=== PATIENT | female | born 1990 | race American Indian/Alaskan Native ===

== ENCOUNTER 2022-07-04 00:02 | Emergency (ER) | payer MEDICAID, OTHER, SELFPAY ==
[2022-07-04 00:33] VITALS: BP 138/86; PULSE 130; RESP 18; TEMP 37; O2SAT 96
--- NOTE | 2022-07-04 00:42 | DI.RAD.S_ITS ---
PROCEDURE: XR CHEST 2V INDICATIONS: cough,congestion TECHNIQUE: 2 views of the chest were acquired. COMPARISON: [facility], CR, XR CHEST 1 VIEW, 04/28/2022, 20:40. FINDINGS: Surgical changes and devices: None. Lungs and pleura: There are increased medial right infrahilar opacities. No pleural effusions or pneumothorax. Mediastinum: Mediastinal contours are normal. Heart size is normal. Bones and chest wall: No suspicious bony abnormalities. Soft tissues appear unremarkable. IMPRESSION: 1. Increased medial right infrahilar opacities suggestive of consolidation and pneumonia. Dictated by: Toni Serrano M.D. on 07/04/2022 at 1:57 Approved by: Toni Serrano M.D. on 07/04/2022 at 1:58
[2022-07-04 01:38] LABS: Adenovirus Not Detected (Not Detect); B. parapertussis Not Detected (Not Detecte); Bordetella pertussis Not Detected (Not Detecte); Chlamydophila pneumoniae Not Detected (Not Detect); Coronavirus 229E Not Detected (Not Detect); Coronavirus HKU1 Not Detected (Not Detect); Coronavirus NL 63 Not Detected (Not Detect); Coronavirus OC43 Not Detected (Not Detect); Human Metapneumovirus Not Detected (Not Detect); Human Rhinovirus/Enterovirus Detected (Not Detect); Influenza A Not Detected (Not Detect); Influenza B Not Detected (Not Detect); Mycoplasma pneumoniae Not Detected (Not Detect); Parainfluenza Virus 1 Not Detected (Not Detect); Parainfluenza Virus 2 Not Detected (Not Detect); Parainfluenza Virus 3 Not Detected (Not Detect); Parainfluenza Virus 4 Not Detected (Not Detect); Respiratory Syncytial Virus Not Detected (Not Detect); SARS- CoV-2 Not Detected (Not Detecte)
[2022-07-04 04:49] VITALS: BP 126/68; PULSE 92; RESP 17; O2SAT 97
--- NOTE | 2022-07-04 05:49 | ED_ITS ---
HPI - URI/Sore Throat General Chief Complaint: Upper Respiratory Symptoms Stated Complaint: CONGESTED Time Seen by Provider: 07/04/22 05:39 Source: patient Mode of arrival: Wheelchair History of Present Illness HPI Narrative: Patient is a 32-year-old female without past medical history presenting today with cough congestion generally not feeling well. She is overall an extremely poor historian difficult to get information out of. She has been in the emergency department now for 6 hours. She initially was tachycardic. She now has been sleeping for multiple hours she awakes easily. She denies fever she is mildly chilled. He says she is very congested coughing up mucus Related Data Home Medications Medication Instructions Recorded Confirmed acetaminophen 500 mg tablet 1,500 mg PO Q6HP ##0 01/12/13 (Tylenol Extra Strength) ibuprofen 400 mg tablet 1,600 mg PO Q6HP ##0 01/12/13 VIT#96/FERROUS FUM/FA ##0 03/31/13 ( Vitamin) [BUSPAR] ##0 03/31/13 [CELEXA] ##0 03/31/13 Previous Rx's Medication Instructions Recorded hydrocodone 5 mg-acetaminophen 325 0 tab PO Q6H PRN ##20 01/15/13 mg tablet amoxicillin 500 mg capsule 1,000 mg PO TID 5 days #30 caps 07/04/22 doxycycline hyclate 100 mg capsule 100 mg PO BID #10 caps 07/04/22 Allergies Allergy/AdvReac Type Severity Reaction Status Date / Time Codeine Allergy Unknown Uncoded 12/11/17 13:05 Propoxyphene Allergy Unknown ITCHY/RASH Uncoded 12/11/17 13:05 Tramadol Allergy Unknown LIPS Uncoded 12/11/17 13:05 SWOLLEN Review of Systems Review of Systems Narrative: GENERAL: Denies chills, fatigue, malaise, fever, sweats, travel HEENT: Denies sinus pain, ear pain, sore throat, difficulty swallowing, neck pain RESPIRATORY: See HPI CARDIOVASCULAR: Denies chest pain, palpitations, orthopnea, edema GASTROINTESTINAL: Denies nausea, vomiting, abdominal pain, diarrhea, constipation, melena. : Denies dysuria, frequency, incontinence, hematuria, urinary retention, flank pain. MUSCULOSKELETAL: Denies weakness, joint pain, or bony pain SKIN: No rash, no erythema, no pruritus NEUROLOGIC: Denies weakness, dizziness, headache, numbness, change in speech, confusion PSYCHIATRIC: No concerning psychosocial issues. 12 point review of systems is negative except for those stated above and HPI Patient History Social History Smoking Status: Current every day smoker Smoking Status: Current every day smoker Substance Use Type: marijuana Exam Initial Vital Signs Initial Vital Signs: Vital Signs Temperature 98.6 F 07/04/22 00:33 Pulse Rate 130 H 07/04/22 00:33 Respiratory Rate 18 07/04/22 00:33 Blood Pressure 138/86 07/04/22 00:33 Pulse Oximetry 96 07/04/22 00:33 Oxygen Delivery Method 07/04/22 00:33 GENERAL: Sleeping arousable 32-year-old HEENT: Head atraumatic,EOMI, pupils reactive, face symmetric, moist mucous membranes CARDIOVASCULAR: Regular rate and rhythm without murmurs, rubs or gallops. RESPIRATORY: Mild crackles right side no respiratory distress speaks in full sentences ABDOMEN: Soft, nontender. Normoactive bowel sounds all 4 quadrants. No guarding or rebound. EXTREMITIES: Normal range of motion, no clubbing or edema. Neurovascularly intact NEUROLOGICAL: Alert and oriented x4.Normal gait and speech. SKIN: Warm, dry, no laceration, no petechiae, no rashes or lesions. Course Orders Ordered: Discontinued Medications Sodium Chloride (Normal Saline 0.9%) 1,000 mls @ 1,000 mls/hr IV BOLUS ONE Stop: 07/04/22 06:52 Last Infusion: 07/04/22 07:08 Dose: 0 mls/hr Documented By: MLTracey Admin: 07/04/22 06:02 Dose: 1,000 mls/hr Documented By: TERENCE Ibuprofen (Ibuprofen 400 Mg Tablet) 800 mg PO NOW ONE Stop: 07/04/22 05:52 Last Admin: 07/04/22 06:02 Dose: 800 mg Documented By: AP Vital Signs Vital signs: Vital Signs - 8 hr 07/04/22 00:33 07/04/22 04:49 07/04/22 06:06 Temperature 98.6 F Pulse Rate 130 H 92 H 97 H Respiratory Rate 18 17 14 Blood Pressure 138/86 126/68 126/68 Pulse Oximetry 96 97 97 Oxygen Delivery Method Room Air Room Air Room Air [facility] - URI/Sore Throat Lab Data Result diagrams: 07/04/22 06:03 07/04/22 06:03 Labs: Lab Results 07/04/22 07/04/22 07/04/22 Range/Units 00:35 06:03 06:03 WBC 12.3 H (4.5-11.0) X10^3/uL RBC 4.40 (4.0-5.2) X10^6/uL Hgb 11.6 L (12.0-16.0) g/dL Hct 34.4 L (36-46) % MCV 78.1 L (80-100) fL MCH 26.4 (26-34) PG MCHC 33.8 (30-36) % RDW 14.1 (11.6-14.8) % Plt Count 237 (150-400) X10^3/uL Neut % (Auto) 81.9 H (50-75) % Lymph % (Auto) 10.0 L (25-40) % [place] % (Auto) 6.3 (3-14) % Eos % (Auto) 1.5 L (2-4) % Baso % (Auto) 0.3 (0-2) % Neut # (Auto) 56718 H (1364-6636) /uL Lymph # (Auto) 1200 (8211-4434) /uL [place] # (Auto) 800 (0-900) /uL Eos # (Auto) 200 (0-450) /uL Baso # (Auto) 0 (0-100) /uL Sodium 138 (137-145) mmol/L Potassium 4.1 (3.4-5.1) mmol/L Chloride 101 (98-107) mmol/L Carbon Dioxide 29 (22-32) mmol/L BUN 15 (7-17) mg/dL Creatinine 0.67 (0.52-1.04) mg/dL Estimated GFR > 60 (>60) mL/min BUN/Creatinine Ratio 22.4 H (6-22) Glucose 94 (70-100) mg/dL Lactate (0.7-2.1) mmol/L Calcium 8.3 L (8.4-10.2) mg/dL Total Bilirubin 0.3 (0.2-1.3) mg/dL AST 20 (14-36) IU/L ALT 18 (<35) IU/L Alkaline Phosphatase 85 (38-126) U/L Total Protein 7.2 (6.3-8.2) g/dL Albumin 3.8 (3.5-5.0) g/dL Globulin 3.4 (1.7-4.1) g/dL Albumin/Globulin Ratio 1.1 (1.0-2.8) Procalcitonin 0.30 (<0.5) ng/mL Chlamy pneumoniae PCR Not detected (Not Detect) Adenovirus (PCR) Not detected (Not Detect) B. pertussis DNA (PCR) Not detected (Not Detecte) B.parapertussis DNA PCR Not detected (Not Detecte) Coronavirus OC43 (PCR) Not detected (Not Detect) Coronavirus HKU1 (PCR) Not detected (Not Detect) Coronavirus 229E (PCR) Not detected (Not Detect) SARS-CoV-2 (PCR) Not detected (Not Detecte) Coronavirus NL63 (PCR) Not detected (Not Detect) Human Metapneumovir PCR Not detected (Not Detect) Influenza Type A (PCR) Not detected (Not Detect) Influenza Type B (PCR) Not detected (Not Detect) M. pneumoniae (PCR) Not detected (Not Detect) Parainfluenza 1 (PCR) Not detected (Not Detect) Parainfluenza 2 (PCR) Not detected (Not Detect) Parainfluenza 3 (PCR) Not detected (Not Detect) Parainfluenza 4 (PCR) Not detected (Not Detect) RSV (PCR) Not detected (Not Detect) Entero/Rhino (PCR) Detected H (Not Detect) 07/04/22 Range/Units 06:03 WBC (4.5-11.0) X10^3/uL RBC (4.0-5.2) X10^6/uL Hgb (12.0-16.0) g/dL Hct (36-46) % MCV (80-100) fL MCH (26-34) PG MCHC (30-36) % RDW (11.6-14.8) % Plt Count (150-400) X10^3/uL Neut % (Auto) (50-75) % Lymph % (Auto) (25-40) % [place] % (Auto) (3-14) % Eos % (Auto) (2-4) % Baso % (Auto) (0-2) % Neut # (Auto) (7684-8749) /uL Lymph # (Auto) (4739-9162) /uL [place] # (Auto) (0-900) /uL Eos # (Auto) (0-450) /uL Baso # (Auto) (0-100) /uL Sodium (137-145) mmol/L Potassium (3.4-5.1) mmol/L Chloride (98-107) mmol/L Carbon Dioxide (22-32) mmol/L BUN (7-17) mg/dL Creatinine (0.52-1.04) mg/dL Estimated GFR (>60) mL/min BUN/Creatinine Ratio (6-22) Glucose (70-100) mg/dL Lactate 0.7 (0.7-2.1) mmol/L Calcium (8.4-10.2) mg/dL Total Bilirubin (0.2-1.3) mg/dL AST (14-36) IU/L ALT (<35) IU/L Alkaline Phosphatase (38-126) U/L Total Protein (6.3-8.2) g/dL Albumin (3.5-5.0) g/dL Globulin (1.7-4.1) g/dL Albumin/Globulin Ratio (1.0-2.8) Procalcitonin (<0.5) ng/mL Chlamy pneumoniae PCR (Not Detect) Adenovirus (PCR) (Not Detect) B. pertussis DNA (PCR) (Not Detecte) B.parapertussis DNA PCR (Not Detecte) Coronavirus OC43 (PCR) (Not Detect) Coronavirus HKU1 (PCR) (Not Detect) Coronavirus 229E (PCR) (Not Detect) SARS-CoV-2 (PCR) (Not Detecte) Coronavirus NL63 (PCR) (Not Detect) Human Metapneumovir PCR (Not Detect) Influenza Type A (PCR) (Not Detect) Influenza Type B (PCR) (Not Detect) M. pneumoniae (PCR) (Not Detect) Parainfluenza 1 (PCR) (Not Detect) Parainfluenza 2 (PCR) (Not Detect) Parainfluenza 3 (PCR) (Not Detect) Parainfluenza 4 (PCR) (Not Detect) RSV (PCR) (Not Detect) Entero/Rhino (PCR) (Not Detect) Imaging Data Chest x-ray: Radiologist's Impression: XRay Report Signed Patient: Geovanny Bush MR#: [id number] : 1990 Acct:[id number] Age/Sex: 32 / F Date of Service: 07/04/22 Loc: ED Accession Number: [id number] ?? Procedure: XR chest 2V Ordering Provider: Sultana Sullivan D.O. PROCEDURE:? XR CHEST 2V ? INDICATIONS:? cough,congestion ? TECHNIQUE:? 2 views of the chest were acquired.? ? COMPARISON:? [facility], CR, XR CHEST 1 VIEW, 04/28/2022, 20:40. ? FINDINGS:? ? Surgical changes and devices:? None.? ? Lungs and pleura:? There are increased medial right infrahilar opacities.? No pleural effusions or pneumothorax.? ? Mediastinum:? Mediastinal contours are normal.? Heart size is normal.? ? Bones and chest wall:? No suspicious bony abnormalities.? Soft tissues appear unremarkable.? ? IMPRESSION:? ? 1. Increased medial right infrahilar opacities suggestive of consolidation and pneumonia. ? ? Dictated by: Toni Serrano M.D. on 07/04/2022 at 1:57 ? ? Approved by: Toni Serrano M.D. on 07/04/2022 at 1:58 ? MDM Narrative Medical decision making narrative: Patient initially tachycardic with heart rate of 130s over sleeping in the lobby for new or so hours. His she is still intermittently tachycardic when she wakes up and starts talking heart rate goes into the 120s. She is found have pneumonia on her x-ray and not respiratory panel is positive for RSV. She is very difficult to get information out of. Fluids are given heart rate improves. Will treat her with amoxicillin and doxycycline for pneumonia shot. She is not septic. Procalcitonin lactic acid and leukocytosis are within normal limits. At this time no need for any further workup. Discharge Plan Departure Patient Disposition: Home Clinical Impression: Respiratory syncytial virus (RSV), Pneumonia Activity Restrictions/Additional Instructions: *You have been diagnosed with pneumonia an RSV *What to do: Drink fluids. Take medication for fever *Continue to take medications as directed Motrin 800 mg every 8 hours if needed for fever Amoxicillin 1000 mg 3 times a day for 5 days Doxycycline 100 mg twice a day for 5 days *Follow up with your primary care provider in 2-3 days or call [phone] *Return to ER if you should have seeing shortness of breath, confusion chest or any new, worsening or concerning symptoms Prescriptions: New amoxicillin 500 mg capsule 1,000 mg PO TID 5 Days Qty: 30 0RF doxycycline hyclate 100 mg capsule 100 mg PO BID Qty: 10 0RF No Action acetaminophen [Tylenol Extra Strength] 500 MG tablet 1,500 mg PO Q6HP Qty: 0 ibuprofen 400 MG tablet 1,600 mg PO Q6HP Qty: 0 hydrocodone-acetaminophen 5 MG/325 MG tablet 0 tab PO Q6H PRN Qty: 20 0RF VIT#96/FERROUS FUM/FA ( Vitamin) Qty: 0 [BUSPAR] Qty: 0 [CELEXA] Qty: 0 Referrals: Jonathan Llanos MD [Primary Care Provider] - Visit Report Forms: Patient Portal/API
[2022-07-04] MEDS: IBUPROFEN 400 MG TABLET 800 MG PO (06:02)
[2022-07-04] MEDS: SODIUM CHLORIDE 0.9% 1,000 ML 1000 ML IV (06:02)
[2022-07-04 06:06] VITALS: BP 126/68; PULSE 97; RESP 14; O2SAT 97
[2022-07-04 06:25] LABS: Add Manual Diff / Slide Review NO; Basophils Absolute Auto 0 /uL (0-100); Basophils Percent Auto 0.3 % (0-2); Eosinophils Absolute Auto 200 /uL (0-450); Eosinophils Percent Auto 1.5 % (2-4); Hematocrit 34.4 % (36-46); Hemoglobin 11.6 g/dL (12.0-16.0); Lymphocytes Absolute Auto 1200 /uL (1100-4500); Mean Corpuscular HGB Conc 33.8 % (30-36); Mean Corpuscular Hemoglobin 26.4 PG (26-34); Mean Corpuscular Volume 78.1 fL (80-100); Monocytes Absolute Auto 800 /uL (0-900); Monocytes Percent Auto 6.3 % (3-14); Neutrophils Absolute Auto 10100 /uL (1500-7000); Neutrophils Percent Auto 81.9 % (50-75); Platelet Count 237 X10^3/uL (150-400); Red Cell Distribution Width 14.1 % (11.6-14.8); White Blood Cell Count 12.3 X10^3/uL (4.5-11.0)
[2022-07-04 06:33] LABS: Alanine Aminotransferase 18 IU/L (<35); Albumin 3.8 g/dL (3.5-5.0); Albumin Globulin Ratio 1.1 (1.0-2.8); Alkaline Phosphatase 85 U/L (38-126); Aspartate Aminotransferase 20 IU/L (14-36); BUN Creatinine Ratio 22.4 (6-22); Bilirubin Total 0.3 mg/dL (0.2-1.3); Blood Urea Nitrogen 15 mg/dL (7-17); Calcium 8.3 mg/dL (8.4-10.2); Carbon Dioxide 29 mmol/L (22-32); Chloride 101 mmol/L (98-107); Estimated Glomerular Filt Rate > 60 mL/min (>60); Globulin 3.4 g/dL (1.7-4.1); Glucose 94 mg/dL (70-100); HEMOLYSIS < 15 (0-50); Lactate (Lactic Acid) 0.7 mmol/L (0.7-2.1); Potassium 4.1 mmol/L (3.4-5.1); Sodium 138 mmol/L (137-145); Total Protein 7.2 g/dL (6.3-8.2)
[2022-07-04 07:07] VITALS: BP 126/68; PULSE 67; RESP 18; O2SAT 98
[2022-07-04 07:15] VITALS: BP 125/70; PULSE 102; RESP 16; O2SAT 98
== END 2022-07-04 07:19 | disposition home or self-care (01) ==
PROVIDERS: Emergency Provider Emergency Medicine; PCP Family Medicine
DX: J12.1 Respiratory syncytial virus pneumonia (principal); R00.0 Tachycardia, unspecified; Z20.822 Contact with and (suspected) exposure to COVID-19
CPT/HCPCS: 36415; 71046; 80053; 83605; 84145; 85025; 87040; 87633; 96360; 99284

== ENCOUNTER 2022-07-30 20:15 | Emergency (ER) | payer MEDICAID, OTHER, SELFPAY ==
[2022-07-30 20:40] VITALS: BP 143/88; PULSE 120; RESP 18; TEMP 38.3; O2SAT 97
--- NOTE | 2022-07-30 20:50 | DI.RAD.S_ITS ---
PROCEDURE: XR CHEST 1V INDICATIONS: suspected sepsis TECHNIQUE: One view of the chest was acquired. COMPARISON: [facility], CR, XR CHEST 2V, 07/04/2022, 0:47. FINDINGS: Surgical changes and devices: None. Lungs and pleura: Lungs are clear. No pleural effusions or pneumothorax. Mediastinum: Mediastinal contours appear normal. Heart size is normal. Bones and chest wall: No suspicious bony lesions. Overlying soft tissues appear unremarkable. IMPRESSION: 1. No acute cardiopulmonary disease. Dictated by: Toni Serrano M.D. on 07/30/2022 at 21:22 Approved by: Toni Serrano M.D. on 07/30/2022 at 21:23
--- NOTE | 2022-07-30 21:18 | ED.HA ---
HPI - Headache General Chief Complaint: Headache Stated Complaint: Headache, Illness, Nausea Time Seen by Provider: 07/30/22 21:01 Mode of arrival: Ambulatory History of Present Illness HPI Narrative: 32-year-old female smoker presents with other family members and similar complaints including 24 hours of body aches, subjective fever, mild headache, sore throat and a dry hacking cough. She is had nausea but denies any vomiting, abdominal pain or diarrhea. She is been exposed to other persons with similar symptoms. Related Data Home Medications Medication Instructions Recorded Confirmed acetaminophen 500 mg tablet 1,500 mg PO Q6HP ##0 01/12/13 (Tylenol Extra Strength) ibuprofen 400 mg tablet 1,600 mg PO Q6HP ##0 01/12/13 VIT#96/FERROUS FUM/FA ##0 03/31/13 ( Vitamin) [BUSPAR] ##0 03/31/13 [CELEXA] ##0 03/31/13 Previous Rx's Medication Instructions Recorded hydrocodone 5 mg-acetaminophen 325 0 tab PO Q6H PRN ##20 01/15/13 mg tablet doxycycline hyclate 100 mg capsule 100 mg PO BID #10 caps 07/04/22 oseltamivir 75 mg capsule (Tamiflu) 75 mg PO BID 5 days #10 caps 07/30/22 Allergies Allergy/AdvReac Type Severity Reaction Status Date / Time codeine Allergy Unknown Verified 07/30/22 20:52 propoxyphene Allergy Unknown Verified 07/30/22 20:52 tramadol Allergy Unknown Verified 07/30/22 20:52 Review of Systems Review of Systems Narrative: GENERAL: See HPI HEENT: See HPI RESPIRATORY: See HPI CARDIOVASCULAR: Denies chest pain, palpitations, orthopnea, edema, GASTROINTESTINAL: Denies nausea, vomiting, abdominal pain, diarrhea, constipation, melena. : Denies dysuria, frequency, incontinence, hematuria, urinary retention. MUSCULOSKELETAL: denies weakness, joint pain, or bony pain SKIN: Denies rash, skin lesions, or other NEUROLOGIC: Denies weakness, headache, numbness, change in speech, confusion, seizures, incoordination. PSYCHIATRIC: No concerning psychosocial issues. 12 point review of systems is negative except for those stated above Patient History Social History Smoking Status: Current every day smoker Smoking Status: Current every day smoker Substance Use Type: marijuana Exam Narrative Exam Narrative: GENERAL: [32] year old patient appears stated age. Well-developed patient, in mild distress. HEAD: Atraumatic. Normocephalic. EYES: Pupils equal round and reactive. Extraocular motions intact. No scleral icterus. No injection or drainage. ENT: Nose without bleeding, purulent drainage. Throat without erythema, tonsillar hypertrophy or exudate. Airway patent. NECK: Trachea midline. Non tender CARDIOVASCULAR: Tachycardic but regular and rhythm without murmurs, gallops, or rubs. RESPIRATORY: Clear to auscultation. Breath sounds equal bilaterally. No wheezes, rales, or rhonchi. No evidence of respiratory distress such as use of accessory muscles or hypoxemia GASTROINTESTINAL: Abdomen soft, non-tender, nondistended. EXTREMITIES: No edema or joint tenderness. BACK: Nontender without deformity or crepitance. No flank tenderness. NEURO: AOx3. SKIN: No rash or erythema of visible areas Initial Vital Signs Initial Vital Signs: Vital Signs Temperature 101 F H 07/30/22 20:40 Pulse Rate 120 H 07/30/22 20:40 Respiratory Rate 18 07/30/22 20:40 Blood Pressure 143/88 H 07/30/22 20:40 Pulse Oximetry 97 07/30/22 20:40 Oxygen Delivery Method 07/30/22 20:40 Course Orders Ordered: ED Orders 07/30/22 20:40 Covid-19 + FLU A/B + RSV - PCR Stat 07/30/22 20:50 XR chest 1V Stat Complete Blood Count AUTO DIFF Stat Comprehensive Metabolic Panel Stat D Dimer Stat Lactate (Lactic Acid) Stat Lipase Stat Partial Thromboplastin Time Stat Procalcitonin Stat Prothrombin Time INR Stat RT Consult Eval and Treat NOW 07/30/22 22:16 Blood Culture Stat Discontinued Medications Sodium Chloride (Normal Saline 0.9%) 1,000 mls @ 1,000 mls/hr IV BOLUS ONE Stop: 07/30/22 21:49 Last Infusion: 07/30/22 22:17 Dose: 0 mls/hr Documented By: Admin: 07/30/22 21:23 Dose: 1,000 mls/hr Documented By: JUANITA Sodium Chloride (Normal Saline 0.9%) 1,973.13 mls @ 657.71 mls/hr 30 ml/kg infuse over 3 hr (1973.13 ml) IV NOW ONE Stop: 07/31/22 00:47 Last Infusion: 07/30/22 23:02 Dose: 0 mls/hr Documented By: Admin: 07/30/22 21:53 Dose: 657.71 mls/hr Documented By: JUANITA Ketorolac Tromethamine (Ketorolac 30 Mg/Ml Vial) 15 mg IV NOW ONE Stop: 07/30/22 21:49 Last Admin: 07/30/22 21:52 Dose: 15 mg Documented By: SB Ondansetron HCl (Ondansetron 4 Mg/2 Ml Inj) 4 mg IV NOW ONE Stop: 07/30/22 20:51 Last Admin: 07/30/22 21:23 Dose: 4 mg Documented By: JUANITA Reevaluation(s) Reevaluation #1: Patient feeling better after above-stated therapies but remains tachycardic. Vital Signs Vital signs: Vital Signs - 8 hr 07/30/22 20:40 07/30/22 21:50 07/30/22 22:00 Temperature 101 F H Pulse Rate 120 H 112 H Respiratory Rate 18 27 H Blood Pressure 143/88 H 149/90 H Pulse Oximetry 97 81 L Oxygen Delivery Method Room Air 07/30/22 22:00 07/30/22 22:30 07/30/22 22:30 Temperature Pulse Rate 118 H 118 H Respiratory Rate 28 H 24 Blood Pressure 142/81 H Pulse Oximetry 100 100 Oxygen Delivery Method MDM - Headache Lab Data Result diagrams: 07/30/22 20:50 07/30/22 20:50 Labs: Lab Results 07/30/22 07/30/22 07/30/22 Range/Units 20:40 20:50 20:50 WBC 4.0 L (4.5-11.0) X10^3/uL RBC 4.51 (4.0-5.2) X10^6/uL Hgb 11.7 L (12.0-16.0) g/dL Hct 35.5 L (36-46) % MCV 78.7 L (80-100) fL MCH 25.9 L (26-34) PG MCHC 33.0 (30-36) % RDW 14.9 H (11.6-14.8) % Plt Count 229 (150-400) X10^3/uL Neut % (Auto) 84.4 H (50-75) % Lymph % (Auto) 5.7 L (25-40) % [place] % (Auto) 8.6 (3-14) % Eos % (Auto) 0.8 L (2-4) % Baso % (Auto) 0.5 (0-2) % Neut # (Auto) 3400 (7486-3486) /uL Lymph # (Auto) 200 L (2981-6837) /uL [place] # (Auto) 300 (0-900) /uL Eos # (Auto) 0 (0-450) /uL Baso # (Auto) 0 (0-100) /uL PT 13.7 H (10.1-12.7) SECONDS INR 1.2 (0.9-1.3) APTT 32 (26-36) SECONDS D-Dimer (<500) ng/ml Sodium (137-145) mmol/L Potassium (3.4-5.1) mmol/L Chloride (98-107) mmol/L Carbon Dioxide (22-32) mmol/L BUN (7-17) mg/dL Creatinine (0.52-1.04) mg/dL Estimated GFR (>60) mL/min BUN/Creatinine Ratio (6-22) Glucose (70-100) mg/dL Lactate (0.7-2.1) mmol/L Calcium (8.4-10.2) mg/dL Total Bilirubin (0.2-1.3) mg/dL AST (14-36) IU/L ALT (<35) IU/L Alkaline Phosphatase (38-126) U/L Total Protein (6.3-8.2) g/dL Albumin (3.5-5.0) g/dL Globulin (1.7-4.1) g/dL Albumin/Globulin Ratio (1.0-2.8) Lipase (23-300) U/L Procalcitonin (<0.5) ng/mL SARS-CoV-2 (PCR) Negative (Negative) Influenza A (RT-PCR) Flu a positive H (NEGATIVE) Influenza B (RT-PCR) Flu b negative (NEGATIVE) RSV (PCR) Negative (Negative) 07/30/22 07/30/22 07/30/22 Range/Units 20:50 20:50 20:50 WBC (4.5-11.0) X10^3/uL RBC (4.0-5.2) X10^6/uL Hgb (12.0-16.0) g/dL Hct (36-46) % MCV (80-100) fL MCH (26-34) PG MCHC (30-36) % RDW (11.6-14.8) % Plt Count (150-400) X10^3/uL Neut % (Auto) (50-75) % Lymph % (Auto) (25-40) % [place] % (Auto) (3-14) % Eos % (Auto) (2-4) % Baso % (Auto) (0-2) % Neut # (Auto) (5017-0563) /uL Lymph # (Auto) (3121-7837) /uL [place] # (Auto) (0-900) /uL Eos # (Auto) (0-450) /uL Baso # (Auto) (0-100) /uL PT (10.1-12.7) SECONDS INR (0.9-1.3) APTT (26-36) SECONDS D-Dimer 545 H (<500) ng/ml Sodium 134 L (137-145) mmol/L Potassium 3.9 (3.4-5.1) mmol/L Chloride 102 (98-107) mmol/L Carbon Dioxide 26 (22-32) mmol/L BUN 11 (7-17) mg/dL Creatinine 0.72 (0.52-1.04) mg/dL Estimated GFR > 60 (>60) mL/min BUN/Creatinine Ratio 15.3 (6-22) Glucose 114 H (70-100) mg/dL Lactate 0.9 (0.7-2.1) mmol/L Calcium 8.4 (8.4-10.2) mg/dL Total Bilirubin 0.2 (0.2-1.3) mg/dL AST 32 (14-36) IU/L ALT 25 (<35) IU/L Alkaline Phosphatase 80 (38-126) U/L Total Protein 7.5 (6.3-8.2) g/dL Albumin 4.2 (3.5-5.0) g/dL Globulin 3.3 (1.7-4.1) g/dL Albumin/Globulin Ratio 1.3 (1.0-2.8) Lipase 33 (23-300) U/L Procalcitonin 0.10 (<0.5) ng/mL SARS-CoV-2 (PCR) (Negative) Influenza A (RT-PCR) (NEGATIVE) Influenza B (RT-PCR) (NEGATIVE) RSV (PCR) (Negative) Point of Care Testing Test Results Negative Urine Dip Bedside Urine Glucose Negative Bedside Urine Bilirubin - Negative Bedside Urine Ketone - Negative Urine Specific [place] 1.015 Bedside Urine Occult Blood - Negative Bedside Urine pH 8.0 Bedside Urine Protein - Negative Bedside Urine Urobilinogen - Negative Bedside Urine Nitrite - Negative Bedside Urine Leukocytes - Negative Esterase MDM Narrative Medical decision making narrative: Patient presents with reassuring history and some elements of her physical exam are concerning, particularly abnormal vital signs. She does have suspected infection and sepsis protocol is initiated. Labs are very reassuring and chest x-ray shows no significant findings. She does have a slightly elevated D-dimer in the setting of tachycardia a CT angiogram was recommended. Patient is able to demonstrate capacity by clear thought, understanding of risks and benefits, clear speech and steady gait. After this discussion patient would still prefer to leave stating she feels much better. She understands the risk and that she may return at any point without fear red percussion. Questions answered to her apparent satisfaction Discharge Plan Departure Patient Disposition: Left Against Medical Advice Clinical Impression: Influenza A Activity Restrictions/Additional Instructions: *You have been diagnosed with [influenza A] *What to do: *Please continue to take your regular medications as directed. [ x] New medication written as a paper prescription *Please follow up with your primary care provider in 2-3 days, call for an appointment. Let them know you were seen in the Emergency Department and that we ask that you be seen in follow up. We will electronically transmit a record of today's note if your PCP is in our system *If you do not have a primary care provider please contact the [facility] Resource line at [phone]. They will ask some questions about your medical history and help get you set up with a doctor in the community. *Return to Emergency Department if you should have any new, worsening or concerning symptoms, such as [fever greater than 101 F, shaking chills, worsening pain, persistent vomiting or other bothersome symptoms] Prescriptions: New oseltamivir [Tamiflu] 75 mg capsule 75 mg PO BID 5 Days Qty: 10 0RF No Action acetaminophen [Tylenol Extra Strength] 500 MG tablet 1,500 mg PO Q6HP Qty: 0 ibuprofen 400 MG tablet 1,600 mg PO Q6HP Qty: 0 hydrocodone-acetaminophen 5 MG/325 MG tablet 0 tab PO Q6H PRN Qty: 20 0RF VIT#96/FERROUS FUM/FA ( Vitamin) Qty: 0 [BUSPAR] Qty: 0 [CELEXA] Qty: 0 doxycycline hyclate 100 mg capsule 100 mg PO BID Qty: 10 0RF Stand Alone Forms: Against Medical Advice
[2022-07-30] MEDS: ONDANSETRON 4 MG/2 ML INJ IV (21:23)
[2022-07-30] MEDS: SODIUM CHLORIDE 0.9% 1,000 ML 1000 ML IV (21:23)
[2022-07-30 21:30] LABS: Add Manual Diff / Slide Review NO; Basophils Absolute Auto 0 /uL (0-100); Basophils Percent Auto 0.5 % (0-2); Eosinophils Absolute Auto 0 /uL (0-450); Eosinophils Percent Auto 0.8 % (2-4); Hematocrit 35.5 % (36-46); Hemoglobin 11.7 g/dL (12.0-16.0); Lymphocytes Absolute Auto 200 /uL (1100-4500); Lymphocytes Percent Auto 5.7 % (25-40); Mean Corpuscular Hemoglobin 25.9 PG (26-34); Mean Corpuscular Volume 78.7 fL (80-100); Monocytes Absolute Auto 300 /uL (0-900); Monocytes Percent Auto 8.6 % (3-14); Neutrophils Absolute Auto 3400 /uL (1500-7000); Neutrophils Percent Auto 84.4 % (50-75); Platelet Count 229 X10^3/uL (150-400); Red Blood Cell Count 4.51 X10^6/uL (4.0-5.2); Red Cell Distribution Width 14.9 % (11.6-14.8)
[2022-07-30 21:36] LABS: Influenza A - CEPHEID Flu A POSITIVE (NEGATIVE); Influenza B - CEPHEID Flu B NEGATIVE (NEGATIVE); Respiratory Syncytial Virus Negative (Negative)
[2022-07-30 21:36] LABS: INR 1.2 (0.9-1.3); Prothrombin Time 13.7 SECONDS (10.1-12.7)
[2022-07-30 21:37] LABS: PTT Partial Thromboplastin Tim 32 SECONDS (26-36)
[2022-07-30 21:38] LABS: Lactate (Lactic Acid) 0.9 mmol/L (0.7-2.1)
[2022-07-30 21:39] LABS: Alanine Aminotransferase 25 IU/L (<35); Albumin 4.2 g/dL (3.5-5.0); Albumin Globulin Ratio 1.3 (1.0-2.8); Alkaline Phosphatase 80 U/L (38-126); Aspartate Aminotransferase 32 IU/L (14-36); BUN Creatinine Ratio 15.3 (6-22); Bilirubin Total 0.2 mg/dL (0.2-1.3); Blood Urea Nitrogen 11 mg/dL (7-17); Calcium 8.4 mg/dL (8.4-10.2); Carbon Dioxide 26 mmol/L (22-32); Chloride 102 mmol/L (98-107); Estimated Glomerular Filt Rate > 60 mL/min (>60); Globulin 3.3 g/dL (1.7-4.1); Glucose 114 mg/dL (70-100); HEMOLYSIS < 15 (0-50); Lipase 33 U/L (23-300); Potassium 3.9 mmol/L (3.4-5.1); Sodium 134 mmol/L (137-145); Total Protein 7.5 g/dL (6.3-8.2)
[2022-07-30 21:40] LABS: COVID-19 CEPHEID 4-PLEX PCR Negative (Negative)
[2022-07-30 21:50] VITALS: PULSE 112; RESP 27; O2SAT 81
[2022-07-30] MEDS: KETOROLAC 30 MG/ML VIAL 15 MG IV (21:52)
[2022-07-30] MEDS: SODIUM CHLORIDE 0.9% 1,973.13 ML 657.71 ML IV (21:53)
[2022-07-30 22:00] VITALS: BP 149/90; PULSE 118; RESP 28; O2SAT 100
[2022-07-30 22:30] VITALS: BP 142/81; PULSE 118; RESP 24; O2SAT 100
[2022-07-30 22:58] LABS: D Dimer 545 ng/ml (<500)
--- NOTE | 2022-07-30 23:03 | PC.NURSE ---
Pt wants to leave. Education given on continuing treatment/evaluation given. Pt left AMA. Provider aware.
== END 2022-07-30 23:04 | disposition left against medical advice (07) ==
PROVIDERS: Emergency Provider Emergency Medicine; PCP Family Medicine
DX: J10.1 Influenza due to other identified influenza virus with other respiratory manifestations (principal); Z20.822 Contact with and (suspected) exposure to COVID-19
CPT/HCPCS: 0241U; 36415; 71045; 80053; 81003; 81025; 83605; 83690; 84145; 85025; 85379; 85610; 85730; 87040; 96361; 96374; 96375; 99284; J1885; J2405

== ENCOUNTER 2022-10-28 19:35 | Emergency (ER) | payer MEDICAID, OTHER, SELFPAY ==
[2022-10-28 20:16] VITALS: PULSE 62; RESP 18; TEMP 36.4; O2SAT 100; BMI 23.3
--- NOTE | 2022-10-28 22:41 | ED_ITS ---
HPI - Abdominal Pain General Chief Complaint: Abdominal Pain Stated Complaint: Stomach/back pain Time Seen by Provider: 10/28/22 19:54 Source: patient Mode of arrival: Ambulatory History of Present Illness HPI narrative: 32-year-old female daily smoker with noncontributory chronic medical problems presents with a chief complaint right upper quadrant pain with radiation to her back that is worse with eating and drinking and improves with rest. She has had some nausea and vomiting but denies any fever or chills. She is had no jaundice . She denies any change in her stool habits such as constipation or diarrhea. She denies any dietary change or medication change. Related Data Home Medications Medication Instructions Recorded Confirmed acetaminophen 500 mg tablet 1,500 mg PO Q6HP ##0 01/12/13 (Tylenol Extra Strength) ibuprofen 400 mg tablet 1,600 mg PO Q6HP ##0 01/12/13 VIT#96/FERROUS FUM/FA ##0 03/31/13 ( Vitamin) [BUSPAR] ##0 03/31/13 [CELEXA] ##0 03/31/13 Previous Rx's Medication Instructions Recorded hydrocodone 5 mg-acetaminophen 325 0 tab PO Q6H PRN ##20 01/15/13 mg tablet doxycycline hyclate 100 mg capsule 100 mg PO BID #10 caps 07/04/22 ondansetron 4 mg disintegrating 4 mg PO TID-QID PRN nausea and 10/29/22 tablet vomiting #10 tabs pantoprazole 40 mg tablet,delayed 40 mg PO DAILY #30 tabs 10/29/22 release (Protonix) Allergies Allergy/AdvReac Type Severity Reaction Status Date / Time codeine Allergy Unknown Verified 07/30/22 20:52 propoxyphene Allergy Unknown Verified 07/30/22 20:52 tramadol Allergy Unknown Verified 07/30/22 20:52 Review of Systems Review of Systems Narrative: GENERAL: Denies chills, fatigue, malaise, fever, sweats. HEENT: Denies sinus pain, ear pain, sore throat, difficulty swallowing, dizzines s. RESPIRATORY: Denies dyspnea, cough, wheezing, hemoptysis, sputum. CARDIOVASCULAR: Denies chest pain, palpitations, orthopnea, edema, GASTROINTESTINAL: See HPI : Denies dysuria, frequency, incontinence, hematuria, urinary retention. MUSCULOSKELETAL: denies weakness, joint pain, or bony pain SKIN: Denies rash, skin lesions, or other NEUROLOGIC: Denies weakness, headache, numbness, change in speech, confusion, seizures, incoordination. PSYCHIATRIC: No concerning psychosocial issues. 12 point review of systems is negative except for those stated above Patient History Social History Smoking Status: Current every day smoker Smoking Status: Current every day smoker Substance Use Type: marijuana Exam Narrative Exam Narrative: GENERAL: [32] year old patient appears stated age. Well-developed patient, in mild distress. HEAD: Atraumatic. Normocephalic. EYES: Pupils equal round and reactive. Extraocular motions intact. No scleral icterus. No injection or drainage. ENT: Nose without bleeding, purulent drainage. Throat without erythema, tonsillar hypertrophy or exudate. Airway patent. NECK: Trachea midline. Non tender CARDIOVASCULAR: Regular rate and rhythm without murmurs, gallops, or rubs. RESPIRATORY: Clear to auscultation. Breath sounds equal bilaterally. No wheezes, rales, or rhonchi. GASTROINTESTINAL: Abdomen soft, RUQ pain, nondistended. EXTREMITIES: No edema or joint tenderness. BACK: Nontender without deformity or crepitance. No flank tenderness. NEURO: AOx3. SKIN: No rash or erythema of visible areas Initial Vital Signs Initial Vital Signs: Vital Signs Temperature 97.6 F 10/28/22 20:16 Pulse Rate 62 10/28/22 20:16 Respiratory Rate 18 10/28/22 20:16 Pulse Oximetry 100 10/28/22 20:16 Oxygen Delivery Method 10/28/22 20:16 Course Orders Ordered: ED Orders 10/28/22 22:47 US abdomen limited Stat 10/28/22 22:49 Complete Blood Count AUTO DIFF Stat Comprehensive Metabolic Panel Stat Lipase Stat Discontinued Medications Hydrocodone Bitart/Acetaminophen (Hydrocodone/Acet 5/325 Prepack) 1 bottle MISC SEEINSTR ONE Stop: 10/29/22 01:12 Last Admin: 10/29/22 01:28 Dose: 1 bottle Documented By: CARMELA Sodium Chloride (Normal Saline 0.9%) 1,000 mls @ 1,000 mls/hr IV BOLUS ONE Stop: 10/28/22 23:45 Last Infusion: 10/29/22 00:46 Dose: 0 mls/hr Documented By: Admin: 10/28/22 23:38 Dose: 1,000 mls/hr Documented By: CARMELA Ondansetron HCl (Ondansetron 4 Mg Odt Prepack) 1 bottle MISC SEEINSTR ONE Stop: 10/29/22 01:12 Last Admin: 10/29/22 01:28 Dose: 1 bottle Documented By: CARMELA Vital Signs Vital signs: Vital Signs - 8 hr 10/29/22 01:29 Pulse Rate 75 Respiratory Rate 12 Blood Pressure 119/68 Pulse Oximetry 98 Oxygen Delivery Method Room Air MDM - Abdominal Pain Lab Data 10/28/22 22:49 10/28/22 22:49 Labs: Lab Results 10/28/22 10/28/22 Range/Units 22:49 22:49 WBC 5.7 (4.5-11.0) X10^3/uL RBC 4.85 (4.0-5.2) X10^6/uL Hgb 12.1 (12.0-16.0) g/dL Hct 37.4 (36-46) % MCV 77.0 L (80-100) fL MCH 25.0 L (26-34) PG MCHC 32.4 (30-36) % RDW 16.8 H (11.6-14.8) % Plt Count 241 (150-400) X10^3/uL Neut % (Auto) 73.2 (50-75) % Lymph % (Auto) 17.1 L (25-40) % Garland % (Auto) 4.8 (3-14) % Eos % (Auto) 4.3 H (2-4) % Baso % (Auto) 0.6 (0-2) % Neut # (Auto) 4200 (5351-7653) /uL Lymph # (Auto) 1000 L (2479-7969) /uL Garland # (Auto) 300 (0-900) /uL Eos # (Auto) 200 (0-450) /uL Baso # (Auto) 0 (0-100) /uL Sodium 137 (137-145) mmol/L Potassium 3.9 (3.4-5.1) mmol/L Chloride 105 (98-107) mmol/L Carbon Dioxide 27 (22-32) mmol/L BUN 19 H (7-17) mg/dL Creatinine 0.69 (0.52-1.04) mg/dL Estimated GFR > 60 (>60) mL/min BUN/Creatinine Ratio 27.5 H (6-22) Glucose 105 H (70-100) mg/dL Calcium 8.1 L (8.4-10.2) mg/dL Total Bilirubin 0.1 L (0.2-1.3) mg/dL AST 23 (14-36) IU/L ALT 22 (<35) IU/L Alkaline Phosphatase 79 (38-126) U/L Total Protein 6.6 (6.3-8.2) g/dL Albumin 3.6 (3.5-5.0) g/dL Globulin 3.0 (1.7-4.1) g/dL Albumin/Globulin Ratio 1.2 (1.0-2.8) Lipase 63 (23-300) U/L MDM Narrative Medical decision making narrative: CC: 32F with abdominal pain nausea and vomiting Complicating co-morbidities: None known Data collected from: Patient Medical records reviewed: Prior notes reviewed in our EMR Differential considered, but not limited to: Pancreatitis, gallbladder disease, bowel obstruction, gastroenteritis versus other Exam documented above, pertinent findings include: Well-hydrated, right upper quadrant pain Lab Test results independently reviewed as above. Pertinent findings: No significant abnormal findings requiring specific intervention Independently reviewed EKG as above Imaging studies independently reviewed: No evidence of cholecystitis or cholelithiasis Treatments: Saline, hydrocodone and Zofran Re-evaluations: Significant improvement over the duration visit Discussion: Patient with right upper quadrant pain and radiation to her back that is worse with eating has reassuring labs and imaging demonstrating no obvious abnormalities with gallbladder. Her pain is well controlled and she is tolerating orals. No evidence of pancreatitis, bowel obstruction considered but thought unlikely given history and physical. Patient appropriate for discharge, discussed clear liquid diet, avoidance of fatty foods and follow-up Disposition: see below, along with detailed discharge instructions that have been reviewed with patient as well as indications for ED re-evaluation and additional outpatient follow up Discharge Plan Departure Patient Disposition: Home Clinical Impression: Abdominal pain Instructions: DI for Abdominal Pain-Adult Activity Restrictions/Additional Instructions: *You have been diagnosed with [abdominal pain] * As we discussed your history and physical exam as well as labs and imaging are very reassuring. There is no evidence of any severe diagnoses that would require a specific or immediate intervention. *What to do: *Please continue to take your regular medications as directed. [x ] New medication prescriptions sent to your pharmacy: [ [facility]] *Please follow up with your primary care provider in 2-3 days, call for an appointment. Let them know you were seen in the Emergency Department and that we ask that you be seen in follow up. We will electronically transmit a record of today's note if your PCP is in our system *Please consider a clear liquid diet for the next 24-48 hours and then slowly advance to regular as tolerated. Also, try to avoid alcohol, nicotine, caffeine, spicy, acidic or fatty foods as this may worsen your symptoms *If you do not have a primary care provider please contact the [facility] Resource line at [phone]. They will ask some questions about your medical history and help get you set up with a doctor in the community. *Return to Emergency Department if you should have any new, worsening or concerning symptoms, such as [fever greater than 101 F, shaking chills, worsening pain, persistent vomiting or other bothersome symptoms] Prescriptions: New pantoprazole [Protonix] 40 mg tablet,delayed release (DR/EC) 40 mg PO DAILY Qty: 30 0RF ondansetron 4 mg tablet,disintegrating 4 mg PO TID-QID PRN (Reason: nausea and vomiting) Qty: 10 0RF No Action acetaminophen [Tylenol Extra Strength] 500 MG tablet 1,500 mg PO Q6HP Qty: 0 ibuprofen 400 MG tablet 1,600 mg PO Q6HP Qty: 0 hydrocodone-acetaminophen 5 MG/325 MG tablet 0 tab PO Q6H PRN Qty: 20 0RF VIT#96/FERROUS FUM/FA ( Vitamin) Qty: 0 [BUSPAR] Qty: 0 [CELEXA] Qty: 0 doxycycline hyclate 100 mg capsule 100 mg PO BID Qty: 10 0RF Referrals: Jonathan Llanos MD [Primary Care Provider] - Mohit Moyer MD [Physician] - Stand Alone Forms: Patient Portal/API
--- NOTE | 2022-10-28 22:47 | DI.US.S_ITS ---
PROCEDURE: US ABDOMEN LIMITED INDICATIONS: RUQ PAIN TECHNIQUE: Real-time focused scanning was performed of the abdomen, with image documentation. COMPARISON: None. FINDINGS: The liver demonstrates increased no focal mass lesions. The gallbladder demonstrates no stones, wall thickening, or pericholecystic fluid. No intra or extrahepatic biliary ductal dilatation. Visualized pancreas appears unremarkable sonographically. IMPRESSION: 1. No evidence of cholelithiasis or cholecystitis. Dictated by: Toni Serrano M.D. on 10/29/2022 at 0:55 Approved by: Toni Serrano M.D. on 10/29/2022 at 0:56
[2022-10-28 23:06] LABS: Add Manual Diff / Slide Review NO; Basophils Absolute Auto 0 /uL (0-100); Basophils Percent Auto 0.6 % (0-2); Eosinophils Absolute Auto 200 /uL (0-450); Eosinophils Percent Auto 4.3 % (2-4); Hematocrit 37.4 % (36-46); Hemoglobin 12.1 g/dL (12.0-16.0); Lymphocytes Absolute Auto 1000 /uL (1100-4500); Lymphocytes Percent Auto 17.1 % (25-40); Mean Corpuscular HGB Conc 32.4 % (30-36); Monocytes Absolute Auto 300 /uL (0-900); Monocytes Percent Auto 4.8 % (3-14); Neutrophils Absolute Auto 4200 /uL (1500-7000); Neutrophils Percent Auto 73.2 % (50-75); Platelet Count 241 X10^3/uL (150-400); Red Blood Cell Count 4.85 X10^6/uL (4.0-5.2); Red Cell Distribution Width 16.8 % (11.6-14.8); White Blood Cell Count 5.7 X10^3/uL (4.5-11.0)
[2022-10-28 23:15] LABS: Alanine Aminotransferase 22 IU/L (<35); Albumin 3.6 g/dL (3.5-5.0); Albumin Globulin Ratio 1.2 (1.0-2.8); Alkaline Phosphatase 79 U/L (38-126); Aspartate Aminotransferase 23 IU/L (14-36); BUN Creatinine Ratio 27.5 (6-22); Bilirubin Total 0.1 mg/dL (0.2-1.3); Blood Urea Nitrogen 19 mg/dL (7-17); Calcium 8.1 mg/dL (8.4-10.2); Carbon Dioxide 27 mmol/L (22-32); Chloride 105 mmol/L (98-107); Estimated Glomerular Filt Rate > 60 mL/min (>60); Glucose 105 mg/dL (70-100); HEMOLYSIS < 15 (0-50); Lipase 63 U/L (23-300); Potassium 3.9 mmol/L (3.4-5.1); Sodium 137 mmol/L (137-145); Total Protein 6.6 g/dL (6.3-8.2)
[2022-10-28] MEDS: SODIUM CHLORIDE 0.9% 1,000 ML 1000 ML IV (23:38)
[2022-10-29] MEDS: ONDANSETRON 4 MG ODT PREPACK 1 BOTTLE MISC (01:28)
[2022-10-29] MEDS: HYDROCODONE/ACET 5/325 PREPACK 1 BOTTLE MISC (01:28)
[2022-10-29 01:29] VITALS: BP 119/68; PULSE 75; RESP 12; O2SAT 98
== END 2022-10-29 01:30 | disposition home or self-care (01) ==
PROVIDERS: Emergency Provider Emergency Medicine; PCP Family Medicine
DX: R10.11 Right upper quadrant pain (principal); R11.2 Nausea with vomiting, unspecified
CPT/HCPCS: 36415; 76705; 80053; 83690; 85025; 96360; 99284

== ENCOUNTER 2024-11-12 09:21 | Emergency (ER) | payer OTHER, SELFPAY ==
[2024-11-12] VITALS (10 sets, daily range): BP systolic 104–123; BP diastolic 55–69; PULSE 83–103; RESP 14; TEMP 37–38.5; O2SAT 93–97; BMI 24.5
--- NOTE | 2024-11-12 09:29 | PC.NURSE ---
Pt reports coughing started two days ago. Reports generalized body aches started yesterday. Pt states she vomited yesterday with no warning. Pt states she did not take any OTC medications today. Pts voice sounds raspy. Dry cough. Pt denies anyone else at home being sick.
[2024-11-12] MEDS: IBUPROFEN 400 MG TABLET 800 MG PO (09:34)
[2024-11-12] MEDS: ACETAMINOPHEN 325 MG TABLET 975 MG PO (09:34)
--- NOTE | 2024-11-12 09:37 | ED.GENADULT ---
HPI - General Adult General Chief complaint: Upper Respiratory Symptoms Stated complaint: Ill for 2 days Time Seen by Provider: 11/12/24 09:24 Source: patient Mode of arrival: EMS History of Present Illness HPI narrative: 34-year-old woman with no significant medical history presents with 2 days of fever, chills, body aches, general misery, mild cough and runny nose. Nobody else at home is actively ill. She has been able to drink but has lost her appetite. Complains of sore throat. No actual vomiting or diarrhea. No palpitations. Related Data Home Medications Medication Instructions Recorded Confirmed acetaminophen 500 mg tablet 1,500 mg PO Q6HP ##0 01/12/13 (Tylenol Extra Strength) ibuprofen 400 mg tablet 1,600 mg PO Q6HP ##0 01/12/13 VIT#96/FERROUS FUM/FA ##0 03/31/13 ( Vitamin) [BUSPAR] ##0 03/31/13 [CELEXA] ##0 03/31/13 Previous Rx's Medication Instructions Recorded hydrocodone 5 mg-acetaminophen 325 0 tab PO Q6H PRN ##20 01/15/13 mg tablet doxycycline hyclate 100 mg capsule 100 mg PO BID #10 caps 07/04/22 ondansetron 4 mg disintegrating 4 mg PO TID-QID PRN nausea and 10/29/22 tablet vomiting #10 tabs pantoprazole 40 mg tablet,delayed 40 mg PO DAILY #30 tabs 10/29/22 release (Protonix) Allergies Allergy/AdvReac Type Severity Reaction Status Date / Time codeine Allergy Unknown Verified 11/12/24 09:26 propoxyphene Allergy Unknown Verified 11/12/24 09:26 tramadol Allergy Unknown Verified 11/12/24 09:26 Review of Systems Review of Systems Narrative: Pertinent positive and negative findings as per HPI Patient History Social History Smoking Status: Current every day smoker Smoking Status: Current every day smoker Exam Initial Vital Signs Initial Vital Signs: Vital Signs Temperature 101.3 F H 11/12/24 09:24 Pulse Rate 103 H 11/12/24 09:24 Respiratory Rate 14 11/12/24 09:24 Blood Pressure 108/67 11/12/24 09:24 Pulse Oximetry 96 11/12/24 09:24 Oxygen Delivery Method Room Air 11/12/24 09:24 General: Alert, pale appears to feel unwell but not acutely toxic. Able to cooperate with exam completely HEENT: Mildly erythematous posterior pharynx without exudate, no cervical adenopathy Respiratory: Able to speak in full sentences, no obvious respiratory distress. no wheezing, no retractions, no rhonchi abdomen is soft, no rebound or guarding Skin: No obvious rashes, warm and dry Neurologic: Grossly intact no obvious asymmetries or abnormalities Psych: appropriate insight and affect, cooperative Course Orders Ordered: ED Orders 11/12/24 09:27 Covid-19 + FLU A/B + RSV - PCR Stat Discontinued Medications Acetaminophen (Acetaminophen 325 Mg Tablet) 975 mg PO NOW ONE Stop: 11/12/24 09:30 Last Admin: 11/12/24 09:34 Dose: 975 mg Documented By: MARCELLE Ibuprofen (Ibuprofen 400 Mg Tablet) 800 mg PO NOW ONE Stop: 11/12/24 09:30 Last Admin: 11/12/24 09:34 Dose: 800 mg Documented By: MARCELLE Vital Signs Vital signs: Vital Signs - 8 hr 11/12/24 09:24 11/12/24 09:24 11/12/24 09:24 Temperature 101.3 F H Pulse Rate 103 H 103 H Respiratory Rate 14 Blood Pressure 108/67 108/67 Pulse Oximetry 96 96 Oxygen Delivery Method Room Air 11/12/24 09:26 11/12/24 09:26 11/12/24 09:30 Temperature Pulse Rate 101 H 98 H Respiratory Rate Blood Pressure 121/69 Pulse Oximetry 96 96 Oxygen Delivery Method 11/12/24 09:30 11/12/24 10:00 11/12/24 10:00 Temperature Pulse Rate 95 H Respiratory Rate Blood Pressure 113/65 123/67 Pulse Oximetry 93 Oxygen Delivery Method 11/12/24 10:30 11/12/24 10:30 11/12/24 11:00 Temperature Pulse Rate 93 H Respiratory Rate Blood Pressure 111/61 111/61 Pulse Oximetry 94 Oxygen Delivery Method 11/12/24 11:00 11/12/24 11:04 11/12/24 11:04 Temperature 99.3 F 99.3 F Pulse Rate 87 Respiratory Rate Blood Pressure Pulse Oximetry 96 Oxygen Delivery Method Room Air Medical Decision Making Lab Data Labs: Lab Results 11/12/24 Range/Units 09:27 SARS-CoV-2 (PCR) Negative (Negative) Influenza A (RT-PCR) Flu a negative (NEGATIVE) Influenza B (RT-PCR) Flu b positive H (NEGATIVE) RSV (PCR) Negative (Negative) MDM Narrative Medical decision making narrative: 34-year-old woman with a history of opioid use disorder on Suboxone for the last 2 months and quite pleased with her overall recovery comes in with 48 hours of fever and body aches. She test positive for influenza B. she has not showing signs of sepsis, reactive airway disease, pneumonia or alternate reasons for further workup or hospital admission. Reviewed with her anticipated course of influenza B including extended fevers and cough. Prescription for Zofran is sent to her pharmacy along with recommendations for ibuprofen and Tylenol, hydration and reasons to return to the emergency department. Discharge Plan Departure Patient Disposition: Home Clinical Impression: Influenza Instructions: DI for Influenza -- Adult Activity Restrictions/Additional Instructions: Sorry that you are suffering so much with your influenza. Unfortunately, this is likely going to last for 7-10 days Using 400 mg of ibuprofen (2 [id number] pills) and 1 Tylenol every 6 hours can be very helpful in controlling pain. I have given you a prescription for ondansetron/Zofran to help with any nausea that you might have Keeping herself well hydrated and resting as much as needed is going to be appropriate Please do continue your currently prescribed Suboxone If you find that you are getting worse or develop any new symptoms, please feel free to return to the emergency department for further evaluation. Prescriptions: No Action acetaminophen [Tylenol Extra Strength] 500 MG tablet 1,500 mg PO Q6HP Qty: 0 ibuprofen 400 MG tablet 1,600 mg PO Q6HP Qty: 0 hydrocodone-acetaminophen 5 MG/325 MG tablet 0 tab PO Q6H PRN Qty: 20 0RF VIT#96/FERROUS FUM/FA ( Vitamin) Qty: 0 [BUSPAR] Qty: 0 [CELEXA] Qty: 0 doxycycline hyclate 100 mg capsule 100 mg PO BID Qty: 10 0RF pantoprazole [Protonix] 40 mg tablet,delayed release (DR/EC) 40 mg PO DAILY Qty: 30 0RF ondansetron 4 mg tablet,disintegrating 4 mg PO TID-QID PRN (Reason: nausea and vomiting) Qty: 10 0RF Referrals: Jonathan Llanos MD [Primary Care Provider] - Stand Alone Forms: Patient Portal/API/Survey
[2024-11-12 11:27] LABS: Influenza A - CEPHEID Flu A NEGATIVE (NEGATIVE); Influenza B - CEPHEID Flu B POSITIVE (NEGATIVE); Respiratory Syncytial Virus Negative (Negative)
[2024-11-12 11:32] LABS: COVID-19 CEPHEID 4-PLEX PCR Negative (Negative)
== END 2024-11-12 12:27 | disposition home or self-care (01) ==
PROVIDERS: Emergency Provider Emergency Medicine; PCP Family Medicine
DX: J10.1 Influenza due to other identified influenza virus with other respiratory manifestations (principal); F17.210 Nicotine dependence, cigarettes, uncomplicated
CPT/HCPCS: 0241U; 99283